=== PATIENT | male | born 1950 | race Caucasian/White ===

== ENCOUNTER → 2020-11-06 08:52 | Outpatient (BNVA) | payer MEDICARE, SELFPAY | PROVIDERS: Family Provider Family Medicine; Visit Provider Dermatology | DX: E11.9 Type 2 diabetes mellitus without complications (principal) | CPT/HCPCS: 83036 ==

== ENCOUNTER 2020-11-26 12:35 | Emergency (ER) | payer MEDICARE, SELFPAY ==
[2020-11-26 13:27] VITALS: BP 170/70; PULSE 59; RESP 16; TEMP 36.6; O2SAT 99; BMI 32.5
--- NOTE | 2020-11-26 13:35 | W.ED.EAR ---
HPI - Ear Problem General: Chief complaint: Ear Stated complaint: Pain in L. Ear Time Seen by Provider: 11/26/20 13:33 Source: patient Mode of arrival: ambulatory Limitations: no limitations History of Present Illness: HPI Narrative: Patient is a 69-year-old male who presents to ED today with a complaint of decreased hearing to his left ear. Patient states he has had symptoms several times previously and states he often requires cerumen disimpactions. Patient has not had any drainage from his ear. No tinnitus. No ear pain. He has no other complaints at this time. MD Complaint: decreased hearing Location: left ear Duration: constant Severity: mild Relieving factors: other (previous cerumen disimpactions) Exacerbating factors: nothing Discharge from ear: no Associated symptoms: Reports no associated symptoms; Denies ear or mastoid pain, fever(s), headache(s) or neck pain Treatment prior to arrival: none Review of Systems Const: Denies: fever(s) Eyes: Denies: change in vision ENMT: Reports: change in hearing; Denies: odynophagia, dental pain, ear or mastoid pain, ear discharge, nasal discharge, nasal congestion, epistaxis, post nasal drip or sinus pain Musc: Denies: neck pain Skin/Breast: Denies: rash Neuro: Denies: headache(s) Physical Exam Const: COMMON NORMALS: no acute distress, patient oriented x3, no limitations and alert GENERAL APPEARANCE: cooperative ORIENTATION/CONSCIOUSNESS: Yes awake, Yes oriented to person, Yes oriented to place and Yes oriented to time HENMT: COMMON NORMALS: normocephalic, atraumatic, external ears normal, TM's normal bilaterally (evaluated after cerumen removal ), Normal external nose present, Normal nasal mucous membranes and turbinates present, moist oral mucous membranes and oropharynx normal HEAD & SCALP: normal to inspection, normocephalic and atraumatic FACE & SINUS: normal facial exam NOSE: Normal external nose present and Normal nasal mucous membranes and turbinates present EXTERNAL EAR: Yes external ears normal and Yes no periauricular adenopathy EXTERNAL AUDITORY CANAL: Abnormal EAC present (bilateral cerumen impaction) TYMPANIC MEMBRANE: TM's normal bilaterally (evaluated after cerumen removal ) Eye: GENERAL EYE: appearance normal, both eyes and all related structures Neck/C-Spine: COMMON NORMALS: full ROM, no lymphadenopathy and no meningeal signs Neuro: COMMON NORMALS: patient oriented x3 SENSORIUM/ORIENTATION: Yes alert, Yes oriented to person, Yes oriented to place and Yes oriented to time MENINGEAL SIGNS: Yes no meningeal signs Course Vital Signs: Vital signs: Vital Signs Temperature 97.9 F 11/26/20 13:27 Pulse Rate 59 L 11/26/20 13:27 Respiratory Rate 16 11/26/20 13:27 Blood Pressure 170/70 11/26/20 13:27 Pulse Oximetry 99 11/26/20 13:27 MDM - Ear MDM Narrative: Medical decision making narrative: Bilateral EACs were irrigated with warm NS by RN w/o complete removal of cerumen. Patient can now hear normally. TMs look normal/intact. Patient is stable for discharge. Discharge Plan Discharge Patient Disposition: Home Clinical Impression: Bilateral impacted cerumen Condition: Stable Discharge Orders: Discharge ED (Routine); Ordered 11/26/20 Ordered By: Kimberly Cody Coding Level of Care Code ED Management Analyst for Neal Dowd
== END 2020-11-26 14:14 | disposition home or self-care (01) ==
PROVIDERS: Emergency Provider Physician Assistant
DX: H61.23 Impacted cerumen, bilateral (principal)
CPT/HCPCS: 99281

== ENCOUNTER 2020-12-17 06:00 | Outpatient (RCR) | payer MEDICARE, SELFPAY | END 2021-01-13 23:59 | disposition home or self-care (01) | LOC: GPT 06:00 | PROVIDERS: Referring Provider Family Medicine Sports Medicine; Visit Provider Family Medicine Sports Medicine | DX: M25.551 Pain in right hip (principal) | CPT/HCPCS: 97032; 97110; 97112; 97140; 97161; 97530; 97760 ==

== ENCOUNTER 2021-01-14 06:00 | Outpatient (RCR) | payer MEDICARE, SELFPAY | END 2021-02-13 23:59 | disposition home or self-care (01) | LOC: GPT 06:00 | PROVIDERS: Referring Provider Family Medicine Sports Medicine; Visit Provider Family Medicine Sports Medicine | DX: M25.551 Pain in right hip (principal) | CPT/HCPCS: 97110; 97116; 97164; 97530 ==

== ENCOUNTER 2021-02-14 06:00 | Outpatient (RCR) | payer MEDICARE, SELFPAY | END 2021-03-16 23:59 | disposition home or self-care (01) | LOC: GPT 06:00 | PROVIDERS: Referring Provider Family Medicine Sports Medicine; Visit Provider Family Medicine Sports Medicine | DX: M25.551 Pain in right hip (principal) | CPT/HCPCS: 97110; 97112; 97530 ==

== ENCOUNTER → 2021-07-26 13:43 | Outpatient (BNVA) | payer MEDICARE, SELFPAY | PROVIDERS: Visit Provider Nurse Practitioner Family | DX: Z20.822 Contact with and (suspected) exposure to COVID-19 (principal) | CPT/HCPCS: 87635 ==

== ENCOUNTER → 2021-12-29 11:30 | Outpatient (BNVA) | payer MEDICARE, SELFPAY | PROVIDERS: Visit Provider Dermatology | DX: I10 Essential (primary) hypertension (principal); Z79.899 Other long term (current) drug therapy | CPT/HCPCS: 80048 ==

== ENCOUNTER → 2022-03-17 10:17 | Outpatient (BNVA) | payer MEDICARE, SELFPAY | PROVIDERS: Visit Provider Dermatology | DX: E11.22 Type 2 diabetes mellitus with diabetic chronic kidney disease (principal); E87.5 Hyperkalemia; I65.29 Occlusion and stenosis of unspecified carotid artery; N18.30 Chronic kidney disease, stage 3 unspecified; R80.9 Proteinuria, unspecified; I12.9 Hypertensive chronic kidney disease with stage 1 through stage 4 chronic kidney disease, or unspecified chronic kidney disease | CPT/HCPCS: 80048; 80069; 81003; 82310; 83970; 84100; 84156; 85025 ==

== ENCOUNTER 2022-05-12 11:32 | Outpatient (CLI) | payer MEDICARE, SELFPAY ==
[2022-05-12 12:19] LABS: Basophils # 0.1 10^3/uL (0.0-0.1); Basophils % 0.7 %; Eosinophils # 0.2 10^3/uL (0.0-0.8); Eosinophils % 3.3 %; Hematocrit 39.5 % (42.0-52.0); Hemoglobin 13.2 g/dL (11.7-16.6); Lymphocytes # 2.2 10^3/uL (0.8-4.8); Lymphocytes % 31.7 %; Mean Corpuscular HGB Conc 33.4 g/dL (30.0-36.0); Mean Corpuscular Hemoglobin 31.5 pg (28.0-34.0); Mean Corpuscular Volume 94.3 fl (80-94); Mean Platelet Volume 10.4 fL (7.4-10.4); Monocytes # 0.6 10^3/uL (0.2-0.9); Monocytes % 8.6 %; Neutrophils # 3.81 10^3/uL (1.8-7.7); Neutrophils % 55.4 %; Nucleated Red Blood Cells % 0 %; Platelet Count 196 10^3/cmm (130-400); Red Blood Count 4.19 10^6/uL (4.1-5.3); Red Cell Distribution Width 12.5 % (12.1-15.1); White Blood Count 6.9 10^3/uL (4.0-10.0)
[2022-05-12 12:28] LABS: Add Urine Culture? Yes; Add Urine Microscopic? YES; Bilirubin Urine Neg (Negative); Blood Urine Neg (Negative); Glucose Urine UA Norm (Normal); Ketones Urine Negative (Negative); Leukocyte Esterase Urine Negative (Negative); Nitrate Urine Negative (Negative); Protein Urine Trace (Negative); Specific Gravity, Urine 1.005 (1.005-1.030); Squamous Epithelial Cell Urine 0-4 /hpf (0-5); Urine Appearance Clear (CLEAR); Urine Color Yellow (Yellow); Urobilinogen Urine Norm (Negative); pH Urine 6 (5-7)
[2022-05-12 12:34] LABS: Total Protein, Random Urine 25.5 mg/dL (0.0-20.0)
[2022-05-12 12:36] LABS: Albumin Level 3.9 g/dL (3.5-5.2); Anion Gap 13.6 (5-19); Blood Urea Nitrogen 33 mg/dL (8-23); Calcium 9.4 mg/dL (8.5-10.5); Calcium 9.5 mg/dL (8.5-10.5); Carbon Dioxide 27 mmol/L (22-29); Chloride 100 mmol/L (98-107); Potassium 3.6 mmol/L (3.5-5.1); Sodium 137 mmol/L (136-145)
[2022-05-12 12:43] LABS: Parathyroid Hormone 51.5 pg/mL (15-65)
[2022-05-12 12:55] LABS: Glucose 39 mg/dL (65-115)
== END 2022-05-12 11:33 | disposition home or self-care (01) ==
PROVIDERS: Visit Provider Internal Medicine Nephrology
DX: E11.22 Type 2 diabetes mellitus with diabetic chronic kidney disease (principal); N18.30 Chronic kidney disease, stage 3 unspecified; I10 Essential (primary) hypertension; I65.29 Occlusion and stenosis of unspecified carotid artery; R80.9 Proteinuria, unspecified; E87.5 Hyperkalemia
CPT/HCPCS: 36415; 80069; 81001; 82310; 83970; 84156; 85025

== ENCOUNTER 2022-07-05 13:45 | Outpatient (CLI) | payer MEDICARE, SELFPAY ==
[2022-07-05 15:02] LABS: Blood Urea Nitrogen 43 mg/dL (8-23); Calcium 9.3 mg/dL (8.5-10.5); Carbon Dioxide 24 mmol/L (22-29); Chloride 105 mmol/L (98-107); Glomerular Filtration Rate 50.2 mL/min (90-130); Glucose 128 mg/dL (65-115); Osmolality Calculated 300 mOsm/kg (285-295); Sodium 139 mmol/L (136-145)
== END 2022-07-05 13:46 | disposition home or self-care (01) ==
PROVIDERS: Visit Provider Nurse Practitioner Family
DX: N18.2 Chronic kidney disease, stage 2 (mild) (principal)
CPT/HCPCS: 80048

== ENCOUNTER 2022-08-18 13:56 | Outpatient (CLI) | payer MEDICARE, SELFPAY ==
[2022-08-18 14:49] LABS: Anion Gap 12.2 (5-19); Blood Urea Nitrogen 43 mg/dL (8-23); Calcium 9.1 mg/dL (8.5-10.5); Carbon Dioxide 25 mmol/L (22-29); Chloride 103 mmol/L (98-107); Glucose 172 mg/dL (65-115); Phosphorus 2.9 mg/dL (2.5-4.5); Potassium 4.2 mmol/L (3.5-5.1); Sodium 136 mmol/L (136-145)
== END 2022-08-18 13:57 | disposition home or self-care (01) ==
PROVIDERS: Visit Provider Nurse Practitioner Family
DX: Z86.39 Personal history of other endocrine, nutritional and metabolic disease (principal)
CPT/HCPCS: 36415; 80069

== ENCOUNTER 2022-12-02 13:41 | Outpatient (CLI) | payer MEDICARE, SELFPAY ==
[2022-12-02 14:32] LABS: Albumin Level 4.1 g/dL (3.5-5.2); Blood Urea Nitrogen 32 mg/dL (8-23); Calcium 9.1 mg/dL (8.5-10.5); Carbon Dioxide 24 mmol/L (22-29); Chloride 102 mmol/L (98-107); Glucose 145 mg/dL (65-115); Phosphorus 3.1 mg/dL (2.5-4.5); Sodium 136 mmol/L (136-145)
[2022-12-02 14:44] LABS: Anion Gap 14.8 (5-19); Potassium 4.8 mmol/L (3.5-5.1)
== END 2022-12-02 13:42 | disposition home or self-care (01) ==
PROVIDERS: Visit Provider Nurse Practitioner Family
DX: E87.5 Hyperkalemia (principal)
CPT/HCPCS: 80069

== ENCOUNTER 2023-04-24 11:33 | Outpatient (CLI) | payer MEDICARE, SELFPAY ==
[2023-04-24 12:37] LABS: Basophils # 0.1 10^3/uL (0.0-0.1); Basophils % 1.1 %; Eosinophils # 0.4 10^3/uL (0.0-0.8); Eosinophils % 5.5 %; Hematocrit 37.8 % (37-53); Lymphocytes # 2.2 10^3/uL (0.8-4.8); Lymphocytes % 34.1 %; Mean Corpuscular HGB Conc 33.6 g/dL (30-55); Mean Corpuscular Hemoglobin 31.8 pg (27-33); Mean Corpuscular Volume 94.5 fl (82-101); Monocytes # 0.5 10^3/uL (0.2-0.9); Monocytes % 7.9 %; Neutrophils # 3.29 10^3/uL (1.8-7.7); Neutrophils % 51.2 %; Nucleated Red Blood Cells % 0 %; Platelet Count 228 10^3/cmm (157-399); Red Cell Distribution Width 11.9 % (12.1-15.1); White Blood Count 6.42 10^3/uL (3.29-11.43)
[2023-04-24 12:44] LABS: Bilirubin Urine Neg (Negative); Blood Urine Neg (Negative); Glucose Urine UA 2+ (Normal); Ketones Urine Negative (Negative); Leukocyte Esterase Urine Negative (Negative); Nitrate Urine Negative (Negative); Protein Urine Neg (Negative); Specific Gravity, Urine 1.005 (1.005-1.030); Urine Appearance Clear (CLEAR); Urine Color Yellow (Yellow); Urobilinogen Urine Norm (Negative); pH Urine 5 (5-7)
[2023-04-24 12:45] LABS: Add Urine Culture? No; Bacteria Urine TRACE /hpf; RBC Urine 0-4 /hpf (0-2); Squamous Epithelial Cell Urine 0-4 /hpf (0-5); WBC Urine 0-4 /hpf (0-5)
[2023-04-24 12:51] LABS: Urine Creatinine 66 mg/dL (39-259)
[2023-04-24 12:57] LABS: Total Protein, Random Urine 16.7 mg/dL (0.0-20.0)
[2023-04-24 13:04] LABS: Calcium 9.8 mg/dL (8.5-10.5)
[2023-04-24 13:06] LABS: Albumin Level 4.4 g/dL (3.5-5.2); Anion Gap 11.2 (5-19); Blood Urea Nitrogen 31 mg/dL (8-23); Calcium 9.7 mg/dL (8.5-10.5); Carbon Dioxide 26 mmol/L (22-29); Chloride 95 mmol/L (98-107); Glomerular Filtration Rate 54.6 mL/min (90-130); Glucose 96 mg/dL (65-115); Phosphorus 2.4 mg/dL (2.5-4.5); Potassium 4.2 mmol/L (3.5-5.1); Sodium 128 mmol/L (136-145)
[2023-04-24 13:11] LABS: Parathyroid Hormone 38.5 pg/mL (15-65)
== END 2023-04-24 11:34 | disposition home or self-care (01) ==
PROVIDERS: Visit Provider Internal Medicine Nephrology
DX: E87.5 Hyperkalemia (principal); E11.22 Type 2 diabetes mellitus with diabetic chronic kidney disease; N18.30 Chronic kidney disease, stage 3 unspecified
CPT/HCPCS: 36415; 80069; 81001; 82310; 82570; 83970; 84156; 85025

== ENCOUNTER 2023-09-13 13:14 | Outpatient (CLI) | payer MEDICARE, SELFPAY ==
[2023-09-13 13:47] LABS: Basophils # 0.1 10^3/uL (0.0-0.1); Basophils % 1.2 %; Eosinophils # 0.3 10^3/uL (0.0-0.8); Eosinophils % 3.7 %; Hematocrit 35.9 % (37-53); Lymphocytes % 26.2 %; Mean Corpuscular HGB Conc 33.1 g/dL (30-55); Mean Corpuscular Hemoglobin 31.3 pg (27-33); Mean Corpuscular Volume 94.5 fl (82-101); Mean Platelet Volume 10.6 fL (7.4-10.4); Monocytes # 0.7 10^3/uL (0.2-0.9); Monocytes % 8.6 %; Neutrophils # 4.57 10^3/uL (1.8-7.7); Nucleated Red Blood Cells % 0 %; Platelet Count 230 10^3/cmm (157-399); Red Cell Distribution Width 12.5 % (12.1-15.1)
[2023-09-13 14:03] LABS: Albumin Level 4.1 g/dL (3.5-5.2); Anion Gap 15.6 (5-19); Blood Urea Nitrogen 32 mg/dL (8-23); Calcium 8.8 mg/dL (8.5-10.5); Carbon Dioxide 23 mmol/L (22-29); Chloride 100 mmol/L (98-107); Glomerular Filtration Rate 54.6 mL/min (90-130); Glucose 188 mg/dL (65-115); Phosphorus 2.9 mg/dL (2.5-4.5); Potassium 4.6 mmol/L (3.5-5.1); Sodium 134 mmol/L (136-145)
[2023-09-13 14:13] LABS: Urine Creatinine 59 mg/dL (39-259)
[2023-09-13 14:14] LABS: UPRO/UCREAT Ratio 0.64 mg/mg CR; Urine Protein Random 38 mg/dL
[2023-09-13 14:21] LABS: Calcium 9.3 mg/dL (8.5-10.5)
[2023-09-13 14:25] LABS: Parathyroid Hormone 70.4 pg/mL (15-65)
[2023-09-13 14:42] LABS: Bilirubin Urine Neg (Negative); Blood Urine Neg (Negative); Glucose Urine UA Trace (Normal); Ketones Urine Negative (Negative); Leukocyte Esterase Urine Negative (Negative); Nitrate Urine Negative (Negative); Protein Urine 1+ (Negative); Specific Gravity, Urine 1.005 (1.005-1.030); Urine Appearance Clear (CLEAR); Urine Color Yellow (Yellow); Urobilinogen Urine Norm (Negative); pH Urine 5 (5-7)
[2023-09-13 14:43] LABS: Add Urine Culture? No; Add Urine Microscopic? YES; Bacteria Urine TRACE /hpf; Squamous Epithelial Cell Urine 0-4 /hpf (0-5); WBC Urine 0-4 /hpf (0-5)
== END 2023-09-13 13:15 | disposition home or self-care (01) ==
LOC: LAB 13:22
PROVIDERS: Visit Provider Surgery
DX: E11.22 Type 2 diabetes mellitus with diabetic chronic kidney disease (principal); N18.30 Chronic kidney disease, stage 3 unspecified; R80.9 Proteinuria, unspecified; E87.5 Hyperkalemia
CPT/HCPCS: 36415; 80069; 81001; 82310; 82570; 83970; 84156; 85025

== ENCOUNTER 2023-10-06 13:08 | Outpatient (CLI) | payer MEDICARE, SELFPAY ==
[2023-10-06 13:43] LABS: Add Urine Microscopic? NO; Charge for UA Resulting for Rev
[2023-10-06 13:44] LABS: Basophils # 0.1 10^3/uL (0.0-0.1); Eosinophils # 0.2 10^3/uL (0.0-0.8); Eosinophils % 3.1 %; Hematocrit 35.4 % (37-53); Lymphocytes # 1.8 10^3/uL (0.8-4.8); Lymphocytes % 26.2 %; Mean Corpuscular HGB Conc 33.9 g/dL (30-55); Mean Corpuscular Hemoglobin 32.1 pg (27-33); Mean Corpuscular Volume 94.7 fl (82-101); Monocytes # 0.5 10^3/uL (0.2-0.9); Monocytes % 7.6 %; Neutrophils # 4.12 10^3/uL (1.8-7.7); Nucleated Red Blood Cells % 0 %; Platelet Count 201 10^3/cmm (157-399); Red Blood Count 3.74 10^6/uL (3.85-5.65); Red Cell Distribution Width 11.9 % (12.1-15.1); White Blood Count 6.67 10^3/uL (3.29-11.43)
[2023-10-06 14:01] LABS: Albumin Level 4.3 g/dL (3.5-5.2); Anion Gap 16.8 (5-19); Blood Urea Nitrogen 38 mg/dL (8-23); Calcium 9.4 mg/dL (8.5-10.5); Carbon Dioxide 23 mmol/L (22-29); Chloride 102 mmol/L (98-107); Glomerular Filtration Rate 37.5 mL/min (90-130); Glucose 219 mg/dL (65-115); Phosphorus 3.1 mg/dL (2.5-4.5); Potassium 4.8 mmol/L (3.5-5.1); Sodium 137 mmol/L (136-145)
[2023-10-06 14:06] LABS: Calcium 9.3 mg/dL (8.5-10.5)
[2023-10-06 14:07] LABS: Bilirubin Urine Neg (Negative); Blood Urine Neg (Negative); Glucose Urine UA 1+ (Normal); Ketones Urine Negative (Negative); Leukocyte Esterase Urine Negative (Negative); Nitrate Urine Negative (Negative); Protein Urine Neg (Negative); Urine Appearance Clear (CLEAR); Urine Color Yellow (Yellow); Urobilinogen Urine Neg (Negative); pH Urine 6 (5-7)
[2023-10-06 14:13] LABS: Parathyroid Hormone 37.5 pg/mL (15-65)
[2023-10-06 14:24] LABS: Urine Creatinine 73 mg/dL (39-259)
[2023-10-06 14:30] LABS: Total Protein, Random Urine 14.6 mg/dL (0.0-20.0)
== END 2023-10-06 13:09 | disposition home or self-care (01) ==
LOC: LAB 13:11
PROVIDERS: Visit Provider Internal Medicine Nephrology
DX: E11.22 Type 2 diabetes mellitus with diabetic chronic kidney disease (principal); N18.30 Chronic kidney disease, stage 3 unspecified
CPT/HCPCS: 36415; 80069; 81003; 82310; 82570; 83970; 84156; 85025

== ENCOUNTER 2023-10-20 11:07 | Outpatient (CLI) | payer MEDICARE, SELFPAY ==
[2023-10-20 12:27] LABS: Albumin Level 4.1 g/dL (3.5-5.2); Anion Gap 14.7 (5-19); Blood Urea Nitrogen 32 mg/dL (8-23); Calcium 9.3 mg/dL (8.5-10.5); Carbon Dioxide 24 mmol/L (22-29); Chloride 102 mmol/L (98-107); Glomerular Filtration Rate 59.9 mL/min (90-130); Glucose 173 mg/dL (65-115); Potassium 4.7 mmol/L (3.5-5.1); Sodium 136 mmol/L (136-145)
== END 2023-10-20 11:08 | disposition home or self-care (01) ==
LOC: LAB 11:12
PROVIDERS: Absent Provider Family Medicine; Visit Provider Internal Medicine Nephrology
DX: N18.2 Chronic kidney disease, stage 2 (mild) (principal)
CPT/HCPCS: 36415; 80069

== ENCOUNTER 2024-01-03 12:47 | Outpatient (CLI) | payer MEDICARE, SELFPAY ==
[2024-01-03 13:17] LABS: Add Urine Microscopic? NO; Charge for UA Resulting for Rev
[2024-01-03 13:20] LABS: Basophils # 0.1 10^3/uL (0.0-0.1); Eosinophils # 0.2 10^3/uL (0.0-0.8); Eosinophils % 2.9 %; Hematocrit 35.3 % (37-53); Lymphocytes # 1.4 10^3/uL (0.8-4.8); Mean Corpuscular HGB Conc 33.4 g/dL (30-55); Mean Corpuscular Hemoglobin 31.4 pg (27-33); Mean Corpuscular Volume 93.9 fl (82-101); Mean Platelet Volume 10.7 fL (7.4-10.4); Monocytes # 0.5 10^3/uL (0.2-0.9); Monocytes % 6.4 %; Neutrophils # 5.21 10^3/uL (1.8-7.7); Neutrophils % 70.7 %; Nucleated Red Blood Cells % 0 %; Platelet Count 212 10^3/cmm (157-399); Red Blood Count 3.76 10^6/uL (3.85-5.65); Red Cell Distribution Width 12.2 % (12.1-15.1); White Blood Count 7.36 10^3/uL (3.29-11.43)
[2024-01-03 13:21] LABS: Bilirubin Urine Neg (Negative); Blood Urine Neg (Negative); Glucose Urine UA Norm (Normal); Ketones Urine Negative (Negative); Leukocyte Esterase Urine Negative (Negative); Nitrate Urine Negative (Negative); Protein Urine Neg (Negative); Urine Appearance Clear (CLEAR); Urine Color Yellow (Yellow); Urobilinogen Urine Norm (Negative); pH Urine 5 (5-7)
[2024-01-03 13:35] LABS: Albumin Level 4.1 g/dL (3.5-5.2); Blood Urea Nitrogen 66 mg/dL (8-23); Carbon Dioxide 19 mmol/L (22-29); Chloride 106 mmol/L (98-107); Glucose 173 mg/dL (65-115); Phosphorus 2.8 mg/dL (2.5-4.5); Sodium 137 mmol/L (136-145)
[2024-01-03 13:38] LABS: Urine Creatinine 109 mg/dL (39-259); Urine Protein Random 15 mg/dL
[2024-01-03 14:00] LABS: UPRO/UCREAT Ratio 0.14 mg/mg CR
[2024-01-03 14:54] LABS: Calcium 9.3 mg/dL (8.5-10.5)
[2024-01-03 15:00] LABS: Parathyroid Hormone 57.5 pg/mL (15-65)
== END 2024-01-03 12:48 | disposition home or self-care (01) ==
PROVIDERS: Visit Provider Internal Medicine Nephrology
DX: Z01.89 Encounter for other specified special examinations (principal)
CPT/HCPCS: 36415; 80069; 81003; 82310; 82570; 83970; 84156; 85025

== ENCOUNTER 2024-01-26 12:52 | Outpatient (CLI) | payer MEDICARE, SELFPAY ==
[2024-01-26 13:34] LABS: Albumin Level 4.2 g/dL (3.5-5.2); Anion Gap 16.9 (5-19); Blood Urea Nitrogen 46 mg/dL (8-23); Calcium 9.3 mg/dL (8.5-10.5); Carbon Dioxide 23 mmol/L (22-29); Chloride 101 mmol/L (98-107); Glucose 122 mg/dL (65-115); Osmolality Calculated 295 mOsm/kg (285-295); Phosphorus 3.7 mg/dL (2.5-4.5); Potassium 4.9 mmol/L (3.5-5.1); Sodium 136 mmol/L (136-145)
== END 2024-01-26 12:53 | disposition home or self-care (01) ==
DX: N18.2 Chronic kidney disease, stage 2 (mild) (principal)
CPT/HCPCS: 80048; 80069

== ENCOUNTER 2024-03-08 14:16 | Outpatient (CLI) | payer MEDICARE, SELFPAY ==
[2024-03-08 14:58] LABS: Basophils # 0.1 10^3/uL (0.0-0.1); Basophils % 1.1 %; Eosinophils # 0.3 10^3/uL (0.0-0.8); Eosinophils % 3.6 %; Hematocrit 32.5 % (37-53); Lymphocytes # 2.1 10^3/uL (0.8-4.8); Lymphocytes % 26.3 %; Mean Corpuscular Hemoglobin 30.4 pg (27-33); Mean Platelet Volume 10.6 fL (7.4-10.4); Monocytes # 0.6 10^3/uL (0.2-0.9); Monocytes % 7.4 %; Neutrophils # 4.88 10^3/uL (1.8-7.7); Neutrophils % 61.3 %; Nucleated Red Blood Cells % 0 %; Platelet Count 243 10^3/cmm (157-399); Red Blood Count 3.42 10^6/uL (3.85-5.65); Red Cell Distribution Width 13.1 % (12.1-15.1); White Blood Count 7.96 10^3/uL (3.29-11.43)
[2024-03-08 15:17] LABS: Calcium 9.6 mg/dL (8.5-10.5)
[2024-03-08 15:18] LABS: Albumin Level 4.1 g/dL (3.5-5.2); Anion Gap 15.8 (5-19); Blood Urea Nitrogen 45 mg/dL (8-23); Calcium 9.2 mg/dL (8.5-10.5); Carbon Dioxide 22 mmol/L (22-29); Chloride 105 mmol/L (98-107); Glucose 123 mg/dL (65-115); Phosphorus 3.4 mg/dL (2.5-4.5); Potassium 4.8 mmol/L (3.5-5.1); Sodium 138 mmol/L (136-145); Uric Acid 9.7 mg/dL (3.4-7.0)
[2024-03-08 15:19] LABS: Urine Creatinine 53 mg/dL (39-259); Urine Protein Random 8 mg/dL
[2024-03-08 15:24] LABS: UPRO/UCREAT Ratio 0.15 mg/mg CR
[2024-03-08 15:24] LABS: Parathyroid Hormone 37.8 pg/mL (15-65)
== END 2024-03-08 14:17 | disposition home or self-care (01) ==
LOC: LAB 14:19
DX: Z86.39 Personal history of other endocrine, nutritional and metabolic disease (principal); N18.2 Chronic kidney disease, stage 2 (mild); I10 Essential (primary) hypertension
CPT/HCPCS: 36415; 80069; 82310; 82570; 83970; 84156; 84550; 85025

== ENCOUNTER 2024-05-03 11:42 | Outpatient (CLI) | payer MEDICARE, SELFPAY ==
[2024-05-03 12:10] LABS: Basophils % 0.5 %; Eosinophils # 0.1 10^3/uL (0.0-0.8); Eosinophils % 1.5 %; Hematocrit 31.5 % (37-53); Lymphocytes # 2.3 10^3/uL (0.8-4.8); Lymphocytes % 30.7 %; Mean Corpuscular HGB Conc 32.1 g/dL (30-55); Mean Corpuscular Volume 96.6 fl (82-101); Mean Platelet Volume 10.8 fL (7.4-10.4); Monocytes # 0.7 10^3/uL (0.2-0.9); Monocytes % 9.7 %; Neutrophils # 4.29 10^3/uL (1.8-7.7); Neutrophils % 57.3 %; Nucleated Red Blood Cells % 0 %; Platelet Count 178 10^3/cmm (157-399); Red Blood Count 3.26 10^6/uL (3.85-5.65); Red Cell Distribution Width 13.1 % (12.1-15.1); White Blood Count 7.49 10^3/uL (3.29-11.43)
[2024-05-03 12:26] LABS: Urine Creatinine 40 mg/dL (39-259); Urine Protein Random 7 mg/dL
[2024-05-03 12:27] LABS: Calcium 8.9 mg/dL (8.5-10.5)
[2024-05-03 12:29] LABS: Albumin Level 4.3 g/dL (3.5-5.2); Anion Gap 17.2 (5-19); Blood Urea Nitrogen 73 mg/dL (8-23); Calcium 8.7 mg/dL (8.5-10.5); Carbon Dioxide 20 mmol/L (22-29); Chloride 102 mmol/L (98-107); Glucose 217 mg/dL (65-115); Phosphorus 4.5 mg/dL (2.5-4.5); Potassium 5.2 mmol/L (3.5-5.1); Sodium 134 mmol/L (136-145)
[2024-05-03 12:30] LABS: UPRO/UCREAT Ratio 0.18 mg/mg CR
[2024-05-03 12:34] LABS: Parathyroid Hormone 83.9 pg/mL (15-65)
== END 2024-05-03 11:43 | disposition home or self-care (01) ==
LOC: LAB 11:47
PROVIDERS: Visit Provider Nurse Practitioner Family
DX: Z86.39 Personal history of other endocrine, nutritional and metabolic disease (principal); N18.2 Chronic kidney disease, stage 2 (mild); I10 Essential (primary) hypertension
CPT/HCPCS: 36415; 80069; 82310; 82570; 83970; 84156; 84550; 85025

== ENCOUNTER 2024-06-25 13:27 | Outpatient (CLI) | payer MEDICARE, SELFPAY ==
[2024-06-25 14:00] LABS: Basophils # 0.1 10^3/uL (0.0-0.1); Basophils % 0.9 %; Eosinophils # 0.3 10^3/uL (0.0-0.8); Eosinophils % 4.9 %; Hematocrit 37.1 % (37-53); Lymphocytes # 2.3 10^3/uL (0.8-4.8); Lymphocytes % 36.4 %; Mean Corpuscular HGB Conc 34.2 g/dL (30-55); Mean Corpuscular Hemoglobin 32.4 pg (27-33); Mean Corpuscular Volume 94.6 fl (82-101); Monocytes # 0.6 10^3/uL (0.2-0.9); Monocytes % 9.9 %; Neutrophils % 47.4 %; Nucleated Red Blood Cells % 0 %; Platelet Count 247 10^3/cmm (157-399); Red Blood Count 3.92 10^6/uL (3.85-5.65); Red Cell Distribution Width 12.4 % (12.1-15.1); White Blood Count 6.34 10^3/uL (3.29-11.43)
[2024-06-25 14:22] LABS: Albumin Level 4.3 g/dL (3.5-5.2); Anion Gap 13.2 (5-19); Blood Urea Nitrogen 40 mg/dL (8-23); Calcium 9.7 mg/dL (8.5-10.5); Carbon Dioxide 25 mmol/L (22-29); Chloride 103 mmol/L (98-107); Glucose 66 mg/dL (65-115); Phosphorus 3.7 mg/dL (2.5-4.5); Potassium 4.2 mmol/L (3.5-5.1); Sodium 137 mmol/L (136-145); Uric Acid 8.6 mg/dL (3.4-7.0)
[2024-06-25 14:23] LABS: UPRO/UCREAT Ratio 0.23 mg/mg CR; Urine Creatinine 44 mg/dL (39-259); Urine Protein Random 10 mg/dL
[2024-06-25 14:32] LABS: Calcium 9.9 mg/dL (8.5-10.5); Parathyroid Hormone 41.5 pg/mL (15-65)
== END 2024-06-25 13:28 | disposition home or self-care (01) ==
LOC: LAB 13:30
PROVIDERS: Visit Provider Nurse Practitioner Family
DX: Z86.39 Personal history of other endocrine, nutritional and metabolic disease (principal); N18.2 Chronic kidney disease, stage 2 (mild); I10 Essential (primary) hypertension
CPT/HCPCS: 36415; 80069; 82310; 82570; 83970; 84156; 84550; 85025

== ENCOUNTER 2024-08-13 14:51 | Outpatient (CLI) | payer MEDICARE, SELFPAY ==
[2024-08-13 15:35] LABS: Basophils # 0.1 10^3/uL (0.0-0.1); Basophils % 1.2 %; Eosinophils # 0.4 10^3/uL (0.0-0.8); Eosinophils % 5.2 %; Hematocrit 35.8 % (37-53); Lymphocytes % 28.2 %; Mean Corpuscular HGB Conc 33.2 g/dL (30-55); Mean Corpuscular Volume 93.2 fl (82-101); Mean Platelet Volume 10.2 fL (7.4-10.4); Monocytes # 0.7 10^3/uL (0.2-0.9); Monocytes % 10.3 %; Neutrophils # 3.79 10^3/uL (1.8-7.7); Neutrophils % 54.8 %; Nucleated Red Blood Cells % 0 %; Platelet Count 237 10^3/cmm (157-399); Red Blood Count 3.84 10^6/uL (3.85-5.65); Red Cell Distribution Width 12.4 % (12.1-15.1); White Blood Count 6.91 10^3/uL (3.29-11.43)
[2024-08-13 15:59] LABS: Albumin Level 4.2 g/dL (3.5-5.2); Anion Gap 18.7 (5-19); Blood Urea Nitrogen 41 mg/dL (8-23); Calcium 9.3 mg/dL (8.5-10.5); Carbon Dioxide 23 mmol/L (22-29); Chloride 96 mmol/L (98-107); Glucose 102 mg/dL (65-115); Phosphorus 3.5 mg/dL (2.5-4.5); Potassium 4.7 mmol/L (3.5-5.1); Sodium 133 mmol/L (136-145)
[2024-08-13 16:00] LABS: Calcium 9.6 mg/dL (8.5-10.5)
[2024-08-13 16:06] LABS: Parathyroid Hormone 60.6 pg/mL (15-65)
[2024-08-13 16:39] LABS: Creatinine Urine, Random 30 mg/dL (39-259); Total Protein, Random Urine 8.7 mg/dL (0.0-20.0)
== END 2024-08-13 14:52 | disposition home or self-care (01) ==
LOC: LAB 14:56
PROVIDERS: PCP Nurse Practitioner Family; Visit Provider Nurse Practitioner Family
DX: Z86.39 Personal history of other endocrine, nutritional and metabolic disease (principal); N18.2 Chronic kidney disease, stage 2 (mild); I10 Essential (primary) hypertension
CPT/HCPCS: 80069; 82310; 82575; 83970; 84156; 84550; 85025